=== PATIENT | female | born 1995 | race African-American/Black ===

== ENCOUNTER → 2016-12-31 | Outpatient (CLI) | payer OTHER ==
--- NOTE | 2016-12-31 11:58 | US ---
HISTORY: Screening and anatomy for 35 week Study: OB ultrasound greater than 14 weeks Comparison: None Technique: Multiple grayscale and color flow Doppler images of the pelvis were obtained with focused evaluation of the fetus. Findings: A viable single intrauterine is identified with heart tones of 142 beats per minute. A cephalic presentation is observed with a right lateral and fundal placenta. Normal amniotic flu id volume is observed Evaluation of the anatomy including the stomach, kidneys, urinary bladd er, and four-chamber heart are unremarkable. The extremities and spine are normal in their sonograp hic appearance. A three-vessel cord is observed. No intracranial abnormality can be identified. Value Estimated Gestational Age BPD 8.8 centimeters 35 weeks 2 days HC 31.65 centimeters 35 weeks 4 days AC 31.04 centimeters 35 weeks FL 6.9 centimeters 35 weeks 2 days IMPRESSION: A viable single intrauterine with an average ultrasound age of 35 weeks correspond to an e stimated date of delivery of February 03. No anatomical abnormalities can be identified. Reported By:
== END ==
LOC: RAD 10:36
PROVIDERS: ATTEND Obstetrics & Gynecology Obstetrics
DX: Z34.83 Encounter for supervision of other normal pregnancy, third trimester (principal); Z3A.35 35 weeks gestation of pregnancy

== ENCOUNTER 2017-01-29 03:57 | Inpatient (IN) | payer OTHER ==
[2017-01-29 04:10] VITALS: BMI 35.6
[2017-01-29 04:24] LABS: BILIRUBIN,URINE NEGATIVE (NEGATIVE); BLOOD/HEMOGLOBIN,URINE 1+ (NEGATIVE); GLUCOSE, URINE NEGATIVE (NEGATIVE); KETONES,URINE NEGATIVE (NEGATIVE); LEUKOCYTE ESTERASE ,URINE 3+ (NEGATIVE); NITRITES,URINE NEGATIVE (NEGATIVE); PH,URINE 6.5 (5.0 - 8.0); PROTEIN,URINE NEGATIVE (NEGATIVE); UROBILINOGEN,URINE NORMAL (NORMAL)
[2017-01-29] MEDS ORDERED: PITOCIN ONE (04:27)
[2017-01-29] MEDS ORDERED: D5LR 1L W PITOCIN 10 UNITS/L 10 UNITS/1,000 ML BAG IV ONE (04:27)
[2017-01-29] MEDS ORDERED: D5 1/2 NS 1L W PITOCIN 20 UNITS/L 20 UNITS/1,000 ML BAG IV ONE (04:28)
[2017-01-29] MEDS ORDERED: D5 1/2 NS 1000 ML 1,000 ML IV ONE (04:28)
[2017-01-29 04:33] LABS: APPEARANCE,URINE HAZY (CLEAR); BACTERIA,URINE 2+ /HPF (NEGATIVE); COLOR,URINE YELLOW (YELLOW); RBC,URINE 0-3 /HPF (NEGATIVE); SQUAMOUS EPITHELIAL CELL,UR MODERATE /HPF (NEGATIVE)
[2017-01-29 04:37] LABS: AMNISURE ROM TEST NO MEMBRANES RUPTURE (NO RUPTURE)
[2017-01-29] MEDS ORDERED: PHENERGAN INJ 25 MG IV PRN ×3 (04:47→07:32)
[2017-01-29] MEDS ORDERED: PITOCIN IVP ONE (04:47)
[2017-01-29] MEDS ORDERED: REGLAN INJ 10 MG VIAL IVP PRN ×2 (04:47→07:32)
[2017-01-29] MEDS ORDERED: NUBAIN INJ 200 MG VIAL MULTIDOSE IVP PRN (04:47)
[2017-01-29] MEDS ORDERED: D5LR 1L W PITOCIN 10 UNITS/L 10 UNITS/1,000 ML BAG IV PRN (04:47)
[2017-01-29] MEDS ORDERED: D5 1/2 NS 1000 ML 1,000 ML IV SCH (05:00)
[2017-01-29 05:07] LABS: BASOPHILS # (AUTO) 0.1 X10^3/uL (0.0-0.1); BASOPHILS % (AUTO) 0.6 % (0.2-1.0); EOSINOPHILS # (AUTO) 0.2 x10^3/uL (0.0-0.2); EOSINOPHILS % (AUTO) 1.1 % (0.9-2.9); HEMATOCRIT 35.1 % (36.0-47.0); LYMPHOCYTES # (AUTO) 2.4 X10^3/uL (1.3-2.9); LYMPHOCYTES % (AUTO) 15.3 % (21.0-51.0); MEAN CORPUSCULAR HEMOGLOBIN 29.9 pg (27.0-34.0); MEAN CORPUSCULAR HGB CONC 34.2 g/dL (33.0-35.0); MEAN CORPUSCULAR VOLUME 87.6 fL (80.0-100.0); MEAN PLATELET VOLUME 9.1 fL (7.4-11.0); MONOCYTES # (AUTO) 0.9 x10^3/uL (0.3-0.8); MONOCYTES % (AUTO) 5.5 % (0.0-13.0); NEUTROPHILS # (AUTO) 11.9 x10^3/uL (2.2-4.8); NEUTROPHILS % (AUTO) 77.5 % (42.0-75.0); PLATELET COUNT 196 X10^3/uL (150.0-450.0); RED BLOOD COUNT 4.01 X10^6/uL (3.5-5.4); RED CELL DISTRIBUTION WIDTH 13.3 % (11.6-16.5); WHITE BLOOD COUNT 15.4 X10^3/uL (3.6-10.0)
[2017-01-29 05:09] LABS: BLOOD UREA NITROGEN 10 mg/dL (7-18); CALCIUM 8.5 mg/dL (8.5-10.1); CHLORIDE 106 mmol/L (98-107); CREATININE 0.72 mg/dL (0.55-1.02); SODIUM 138 mmol/L (136-145); eGFR BLACK RACES > 60 (>60); eGFR NON BLACK RACES > 60 (>60)
[2017-01-29] MEDS ORDERED: MOTRIN TAB 800 MG PO PRN ×2 (06:41→07:32)
--- NOTE | 2017-01-29 06:41 | DR.OB ---
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 Head delivered over intact perineum. Nose and mouth bulb suctioned. No nuchal cord. Body delivered over intact perineum. Cord clamped x 2 and cut. handed to attendant. Cord sent for gases. Placenta delivered spontaneously / intact / 3 vessel cord. No CVX / vaginal / perineal tears. Viable male infant, VTX/OA, wt=7'15" and 9/10, stable to NBN. Mother stable to RR. NHU=[id number].
[2017-01-29] MEDS ORDERED: D5 1/2 NS 1000 ML 1,000 ML with PITOCIN 20 UNITS IV SCH ×4 (07:00→15:00)
[2017-01-29] MEDS ORDERED: DERMOPLAST SPRAY TOP PRN (07:32)
[2017-01-29] MEDS ORDERED: MILK OF MAGNESIA PO PRN (07:32)
[2017-01-29] MEDS ORDERED: ADACEL TDaP IM ONE (07:32)
[2017-01-29] MEDS ORDERED: AMBIEN PO PRN (07:32)
[2017-01-29] MEDS: PRENATAL PLUS PO SCH (08:46)
[2017-01-29] MEDS: ZANTAC PO SCH ×2 (08:46→21:03)
[2017-01-30 06:11] LABS: HEMATOCRIT 31.2 % (36.0-47.0); HEMOGLOBIN 10.9 g/dL (12.0-16.0)
[2017-01-30] MEDS ORDERED: ADACEL TDaP IM ONE (09:51)
[2017-01-30] MEDS: PRENATAL PLUS PO SCH (09:56)
[2017-01-30] MEDS: ZANTAC PO SCH (09:56)
[2017-01-30 13:27] VITALS: BP 117/61
== END 2017-01-30 13:30 | disposition home or self-care (01) | DRG 775 ==
LOC: ER 03:57 → LD 04:28 → MED/SURG 08:10
PROVIDERS: ADMIT Specialist; ATTEND Obstetrics & Gynecology Obstetrics
PROC: 10E0XZZ Delivery of Products of Conception, External Approach (ICD-10-PCS; principal; 2017-01-29)
PROC: 3E0234Z Introduction of Serum, Toxoid and Vaccine into Muscle, Percutaneous Approach (ICD-10-PCS; 2017-01-30)
DX: O80 Encounter for full-term uncomplicated delivery (principal); Z37.0 Single live birth; Z3A.39 39 weeks gestation of pregnancy; Z23 Encounter for immunization
CPT/HCPCS: 36415; 59409; 80048; 81001; 84112; 85014; 85018; 85025; 86592; 86850; 86900; 86901; 87086; 96365; 99284; A4222; S0197; J2590; J7042